=== PATIENT | female | born 1970 | race American Indian/Alaskan Native ===

== ENCOUNTER 2017-11-13 00:24 | Emergency (ER) | payer MEDICAID, MEDICARE ==
[2017-11-13 00:36] VITALS: BP 128/77
[2017-11-13] MEDS ORDERED: TYLENOL ONE (00:41)
[2017-11-13] MEDS ORDERED: TYLENOL PO ONE (00:44)
--- NOTE | 2017-11-13 01:31 | Emergency Department Report ---
ED Lower Extremity HPI - General Chief Complaint: Back Pain/Injury Stated Complaint: L FLANK PAIN Time Seen by Provider: 11/13/17 01:17 Source: patient, EMS Mode of arrival: Wheelchair Limitations: No Limitations - History of Present Illness Initial Comments: This is a 47 y.o. female presents with low back pain radiating to left leg for 1 day. She reports taking a nap around 1430 yesterday and when she woke up she could not move her left leg. She can only drag it. The pain 10/10 on pain scale and if feel numb. Denies injury or fall. Denies tingling, swelling, or redness. She have a history of varicose veins and chronic low back pain. -: Sudden (woke up to low back pain radiating to LLE yesterday) Time: 16:30 Injury: Leg: Left (pain shotting from low back) Type of Injury: unknown Place: home Severity: severe Severity scale (0 -10): 10 Improves With: nothing Context: walking Associated Symptoms: unable to bear weight. denies: snap/pop sensation, swelling, numbness, tingling, able to partially bear weight, ambulatory - Related Data Previous Rx's Medication Instructions Recorded Last Taken Type Compress.stocking,Knee,Reg,Lrg 1 each MC DAILY #1 each 11/13/17 Unknown Rx [Relief Knee Open Toe] Cyclobenzaprine HCl [Flexeril 5 MG 5 mg PO TID PRN #20 tab 11/13/17 Unknown Rx TAB] Diclofenac Sodium 50 mg PO TID PRN #30 tablet. 11/13/17 Unknown Rx Allergies Allergy/AdvReac Type Severity Reaction Status Date / Time No Known Allergies Allergy Verified 11/13/17 00:52 ED Review of Systems ROS: Stated complaint: L FLANK PAIN Other details as noted in HPI Constitutional: denies: chills, fever Respiratory: denies: cough, shortness of breath, wheezing Cardiovascular: denies: chest pain, palpitations Gastrointestinal: denies: abdominal pain, nausea, diarrhea Musculoskeletal: back pain (low back pain), arthralgia (LLE). denies: joint swelling Skin: denies: rash, lesions Neurological: denies: headache, weakness, paresthesias ED Past Medical Hx - Past Medical History Hx Arthritis: Yes Additional medical history: back pain and sciatica - Surgical History Additional Surgical History: left knee pain - Social History Smoking Status: Current Every Day Smoker Substance Use Type: None - Medications Home Medications: Home Medications Medication Instructions Recorded Confirmed Last Taken Type Compress.stocking,Knee,Reg,Lrg 1 each MC DAILY #1 each 11/13/17 Unknown Rx [Relief Knee Open Toe] Cyclobenzaprine HCl [Flexeril 5 MG 5 mg PO TID PRN #20 tab 11/13/17 Unknown Rx TAB] Diclofenac Sodium 50 mg PO TID PRN #30 tablet. 11/13/17 Unknown Rx ED Physical Exam - General Limitations: No Limitations General appearance: alert, in no apparent distress - Respiratory Respiratory exam: Present: normal lung sounds bilaterally. Absent: respiratory distress - Cardiovascular Cardiovascular Exam: Present: regular rate, normal rhythm. Absent: systolic murmur, diastolic murmur, rubs, gallop - GI/Abdominal GI/Abdominal exam: Present: soft, normal bowel sounds - Expanded Lower Extremity Exam Left Hip exam: Present: normal inspection, full ROM Upper Leg exam: Present: normal inspection, full ROM Knee exam: Present: normal inspection, full ROM Lower Leg exam: Present: normal inspection, full ROM Ankle exam: Present: normal inspection, full ROM Foot/Toe exam: Present: normal inspection, full ROM Neuro vascular tendon exam: Present: no vascular compromise Gait: Positive: observed and limited by pain, unable to bear weight (to LLE) - Back Exam Back exam: Present: muscle spasm, vertebral tenderness. Absent: CVA tenderness (R), CVA tenderness (L), rash noted - Neurological Exam Neurological exam: Present: alert, oriented X3, abnormal gait (unable to bear weight to LLE, draging LLE) - Skin Skin exam: Present: warm, dry, intact, normal color. Absent: rash ED Course Vital Signs 11/13/17 11/13/17 00:30 00:45 Temperature 98 F Pulse Rate 79 Respiratory 20 18 Rate Blood Pressure 128/77 O2 Sat by Pulse 100 Oximetry ED Lower Extremity MDM - Radiology Data Radiology results: report reviewed L-spine IMPRESSION: 1. No fracture or malalignment. 2. Mild spondylotic and degenerative changes. Left hip No fracture, dislocation, or significant degenerative changes. - Medical Decision Making This is a 47 y.o. female presents with low back pain radiating to LLE. Distress noted. Patient is unable to bear weight to LLE. Patient was examined by me. L- spine and left hip xray's obtained. Findings of mild spondylotic and degenerative changes. Physical findings susceptible of low back pain with sciatica to left. Given tylenol 650 mg po once, norco 10/325 mg po once. Patient informed of results. Plan discussed with patient to discharge home and treat outpatient. She agrees with ER plan. Request prescription for compression stocking for varicose veins. Patient discharged home in stable condition. Start ibuprofen and cyclobenzaprine. Follow up with PCP. Critical care attestation.: If time is entered above; I have spent that time in minutes in the direct care of this critically ill patient, excluding procedure time. ED Disposition Clinical Impression: Varicose vein of leg, Lumbar pain with radiation down left leg Low back pain with sciatica Qualifiers: Chronicity: acute Back pain laterality: bilateral Sciatica laterality: sciatica of left side Qualified Code(s): M54.42 - Lumbago with sciatica, left side Disposition: TO HOME OR SELFCARE Is pt being admited?: No Does the pt Need Aspirin: No Condition: Stable Instructions: Sciatica (ED), Varicose Veins (ED), Lumbar Radiculopathy (ED) Additional Instructions: Rest Use ice or heat on affected area for 20 minutes and off for 2 hours. Take pain medication as needed for pain. Don't drive or operate heavy machinery while taking muscle relaxers because they may cause drowsiness. Follow up with Primary Care Provider. Follow up with vascular surgery for varicose veins and Orthopedic for back pain. Prescriptions: Compress.stocking,Knee,Reg,Lrg [Relief Knee Open Toe] 1 each MC DAILY #1 each Cyclobenzaprine HCl [Flexeril 5 MG TAB] 5 mg PO TID PRN #20 tab PRN Reason: Muscle Spasm Diclofenac Sodium 50 mg PO TID PRN #30 tablet. PRN Reason: Pain Referrals: ALIX COKER MD [Staff Physician] - 3-5 Days ELLE XIE MD [Staff Physician] - 3-5 Days [facility] [Outside] - 3-5 Days [facility] [Outside] - 3-5 Days Forms: Work/School Release Form(ED) Time of Disposition: 05:12 Print Language: LITHUANIAN
--- NOTE | 2017-11-13 03:58 | XRay Report ---
FINAL REPORT EXAM: XR SPINE LUMBOSACRAL 2-3V HISTORY: Lower back pain with sciatica. TECHNIQUE: Frontal, lateral, and lateral coned-down lumbosacral radiographs of the lumbar spine were obtained. No prior studies are available for comparison. FINDINGS: The vertebral bodies demonstrate normal height and morphology. There is no fracture or spondylolisthesis. The intervertebral disc heights are maintained. There are mild spondylotic changes throughout the spine, with mild anterior and lateral marginal spurring. There is facet hypertrophy in the lower lumbar spine. Mild abdominal aortic calcifications are noted. There are multiple surgical clips in the right upper quadrant, in keeping with prior cholecystectomy. In this patient with reported sciatica, MRI examination should be considered for more definitive evaluation. IMPRESSION: 1. No fracture or malalignment. 2. Mild spondylotic and degenerative changes.
--- NOTE | 2017-11-13 04:06 | XRay Report ---
FINAL REPORT EXAM: XR HIP 2-3V LT HISTORY: Left hip pain. TECHNIQUE: A single frontal radiograph the pelvis and additional view of the left hip were obtained. No prior studies are available for comparison. FINDINGS: There is no fracture or dislocation. There is no significant joint space narrowing. Mild spondylotic changes are seen in the visualized lower lumbar spine. No other discrete osseous abnormality is seen. There are several subcentimeter curvilinear calcifications medial to the lesser trochanters on both sides,, may represent vascular calcifications or sequela of remote injury. IMPRESSION: No fracture, dislocation, or significant degenerative changes.
[2017-11-13] MEDS ORDERED: NORCO 10/325 PO ONE (04:25)
[2017-11-13] MEDS ORDERED: NORCO 10/325 ONE (06:37)
== END 2017-11-13 06:39 | disposition home or self-care (01) ==
LOC: ED 00:24
DX: M54.42 Lumbago with sciatica, left side (principal); I86.8 Varicose veins of other specified sites; M19.90 Unspecified osteoarthritis, unspecified site; F17.200 Nicotine dependence, unspecified, uncomplicated
CPT/HCPCS: 72100; 99284

== ENCOUNTER 2020-12-23 17:00 | Emergency (ER) | payer MEDICAID ==
[2020-12-23 17:18] VITALS: BP 159/82
--- NOTE | 2020-12-23 17:27 | Event Note ---
ED Screening Note Date of service: 12/23/20 Time: 17:27 ED Screening Note: Laceration to right lower leg via broken porcelain glass Unsure of last tetanus vaccine This initial assessment/diagnostic orders/clinical plan/treatment(s) is/are subject to change based on patients health status, clinical progression and re- assessment by fellow clinical providers in the ED. Further treatment and workup at subsequent clinical providers discretion. Patient/guardian urged not to elope from the ED as their condition may be serious if not clinically assessed and managed. Initial orders include: X-ray Boostrix
--- NOTE | 2020-12-23 17:56 | XRay Report ---
Right tibia and fibula 4 views INDICATION: Laceration FINDINGS: No radiopaque foreign body is definitely seen. Soft tissue laceration seen in the medial as pect of the lower leg soft tissues. No acute bone findings are identified. Signer Name: Jean Paul Valdez MD Signed: 12/23/2020 5:52 PM Workstation Name: [id number]
[2020-12-23] MEDS ORDERED: traMADol 50 MG TAB PO ONE (18:07)
[2020-12-23] MEDS ORDERED: IBUPROFEN 800 MG TAB PO ONE (18:24)
[2020-12-23] MEDS ORDERED: LIDOCAINE (2%) 20 MG/1 ML VIAL 20 ML MDV INFILTRATI ONE (18:49)
--- NOTE | 2020-12-23 18:52 | Emergency Department Report ---
- General Chief Complaint: Wound/Laceration Stated Complaint: ANKLE LAC Time Seen by Provider: 12/23/20 17:26 Source: patient Mode of arrival: Wheelchair Limitations: No Limitations - History of Present Illness Initial Comments: Patient is a 50-year-old female presents emergency room complaints of a laceration to her right lower leg that occurred just prior to arrival. Patient states that she was standing on a porcelain toilet and it broke into pieces and caused a laceration to her right lower leg. She states that initially there was bleeding but it resolved with placement of gauze. She denies any other injury. She is able to ambulate. She denies any numbness or weakness. She is unsure of her last tetanus immunization. Past medical history of asthma, arthritis, and COPD. Allergy to [place], penicillin, shellfish. - Related Data Previous Rx's Medication Instructions Recorded Last Taken Type Compress.stocking,Knee,Reg,Lrg 1 each MC DAILY #1 each 11/13/17 Unknown Rx [Relief Knee Open Toe] Cyclobenzaprine HCl [Flexeril 5 MG 5 mg PO TID PRN #20 tab 11/13/17 Unknown Rx TAB] Diclofenac Sodium 50 mg PO TID PRN #30 tablet. 11/13/17 Unknown Rx traMADoL [Ultram 50 MG tab] 50 mg PO Q6HR PRN #20 tablet 11/13/17 Unknown Rx Ibuprofen [Motrin 800 MG tab] 800 mg PO Q8HR PRN #27 tablet 02/07/19 Unknown Rx Sulfamethoxazole/Trimethoprim 1 each PO BID #14 tablet 02/07/19 Unknown Rx [Bactrim DS TAB] Naproxen [EC-Naprosyn] 500 mg PO BID PRN #14 tablet. 12/23/20 Unknown Rx Sulfamethoxazole/Trimethoprim 1 each PO BID 7 Days #14 tablet 12/23/20 Unknown Rx [Bactrim DS TAB] Allergies Allergy/AdvReac Type Severity Reaction Status Date / Time acetaminophen [From Vicodin] Allergy Itching Verified 02/07/19 21:26 hydrocodone [From Vicodin] Allergy Itching Verified 02/07/19 21:26 Penicillins Allergy Itching Verified 02/07/19 21:26 shellfish derived Allergy Swelling Verified 02/07/19 21:26 ED Review of Systems ROS: Stated complaint: ANKLE LAC Other details as noted in HPI Comment: All other systems reviewed and negative ED Past Medical Hx - Past Medical History Previous Medical History?: Yes Hx Arthritis: Yes Additional medical history: back pain and sciatica. PVD - Surgical History Past Surgical History?: Yes Additional Surgical History: left knee pain. x1 - Social History Smoking Status: Current Every Day Smoker Substance Use Type: None - Medications Home Medications: Home Medications Medication Instructions Recorded Confirmed Last Taken Type Compress.stocking,Knee,Reg,Lrg 1 each MC DAILY #1 each 11/13/17 Unknown Rx [Relief Knee Open Toe] Cyclobenzaprine HCl [Flexeril 5 MG 5 mg PO TID PRN #20 tab 11/13/17 Unknown Rx TAB] Diclofenac Sodium 50 mg PO TID PRN #30 tablet. 11/13/17 Unknown Rx traMADoL [Ultram 50 MG tab] 50 mg PO Q6HR PRN #20 tablet 11/13/17 Unknown Rx Ibuprofen [Motrin 800 MG tab] 800 mg PO Q8HR PRN #27 tablet 02/07/19 Unknown Rx Sulfamethoxazole/Trimethoprim 1 each PO BID #14 tablet 02/07/19 Unknown Rx [Bactrim DS TAB] Naproxen [EC-Naprosyn] 500 mg PO BID PRN #14 tablet. 12/23/20 Unknown Rx Sulfamethoxazole/Trimethoprim 1 each PO BID 7 Days #14 tablet 12/23/20 Unknown Rx [Bactrim DS TAB] ED Physical Exam - General Limitations: No Limitations General appearance: alert, in no apparent distress - Head Head exam: Present: atraumatic, normocephalic - Eye Eye exam: Present: normal appearance - ENT ENT exam: Absent: mucous membranes moist - Respiratory Respiratory exam: Absent: respiratory distress, accessory muscle use - Neurological Exam Neurological exam: Present: alert, oriented X3 - Psychiatric Psychiatric exam: Present: normal affect, normal mood - Skin Skin exam: Present: warm, dry, other (4 cm laceration present to the medial surface of the right ankle just posterior to the malleolus region, no active bleeding, no muscle/tendon involvement, FROM of the RLE, no foreign body, no deformity, neurovascularly intact) ED Course Vital Signs 12/23/20 12/23/20 17:17 18:26 Temperature 98 F Pulse Rate 89 Respiratory 24 18 Rate Blood Pressure 159/82 [Right] O2 Sat by Pulse 96 Oximetry - Laceration /Wound Repair Right Medial Ankle Wound Location: lower extremity (right medial ankle) Wound Length (cm): 4 Wound's Depth, Shape: superficial, linear Wound Explored: clean Irrigated w/ Saline (ccs): 100 Betadine Prep?: Yes Volume Anesthetic (ccs): 10 (2% lidocaine without epi) Wound Debrided: moderate Wound Repaired With: sutures Suture Size/Type: 3:0, proline Number of Sutures: 8 Layer Closure?: No Sterile Dressing Applied?: Yes Progress: Wound irrigated with saline and thoroughly scrubbed with chlorhexidine, 10 cc of 2% lidocaine without epinephrine used anesthetic, no foreign body, no muscle or tendon involvement, chlorhexidine prep, sterile gloves worn, sterile drapes applied, 3-0 Prolene used for skin closure, 8 sutures placed, patient tolerated well, no complications, bleeding controlled, sterile dressing applied ED Medical Decision Making - Radiology Data Radiology results: report reviewed Ordering Physician: MYRON MIGUEL Date of Service: 12/23/20 Procedure(s): XR tibia fibula 2V RT Accession Number(s): [id number] cc: MYRON MIGUEL Fluoro Time In Minutes: Right tibia and fibula 4 views INDICATION: Laceration FINDINGS: No radiopaque foreign body is definitely seen. Soft tissue laceration seen in the medial aspect of the lower leg soft tissues. No acute bone findings are identified. Signer Name: Jean Paul Valdez MD Signed: 12/23/2020 5:52 PM Workstation Name: [id number] Transcribed By: CW Dictated By: ARTURO VALDEZ MD Electronically Authenticated By: ARTURO VALDEZ MD Signed Date/Time: 12/23/201751 DD/ 50 TD/TT: - Medical Decision Making Patient is a 50-year-old female presents emergency room complaints of a laceration to her right lower leg that occurred just prior to arrival. Patient states that she was standing on a porcelain toilet and it broke into pieces and caused a laceration to her right lower leg. She states that initially there was bleeding but it resolved with placement of gauze. She denies any other injury. She is able to ambulate. She denies any numbness or weakness. She is unsure of her last tetanus immunization. Past medical history of asthma, arthritis, and COPD. Allergy to [place], penicillin, shellfish. Vitals are stable. On exam: 4 cm laceration present to the medial surface of the right ankle just posterior to the malleolus region, no active bleeding, no muscle/tendon involvement, FROM of the RLE, no foreign body, no deformity, neurovascularly intact. XR right tib fib: FINDINGS: No radiopaque foreign body is definitely seen. Soft tissue laceration seen in the medial aspect of the lower leg soft tissues. No acute bone findings are identified. Laceration repaired per procedure note without any complications. Patient given prescription for naproxen and Bactrim. Patient given Tdap immunization. Advised patient Please keep area clean, dry, covered. Wash with antibacterial soap and water and pat dry. No hot tub, no pool, no soaking in water. Showering is fine. Sutures will be need to be removed in 10 to 14 days. Please take medication as prescribed. Follow-up with primary care doctor. Return to emergency room for any worsening symptoms or any signs of infection. Critical care attestation.: If time is entered above; I have spent that time in minutes in the direct care of this critically ill patient, excluding procedure time. ED Disposition Clinical Impression: Laceration of right lower leg Qualifiers: Encounter type: initial encounter Qualified Code(s): S81.811A - Laceration without foreign body, right lower leg, initial encounter Disposition: DC- TO HOME OR SELFCARE Is pt being admited?: No Does the pt Need Aspirin: No Condition: Stable Instructions: Laceration Care, Adult Additional Instructions: Please keep area clean, dry, covered. Wash with antibacterial soap and water and pat dry. No hot tub, no pool, no soaking in water. Showering is fine. Sutures will be need to be removed in 10 to 14 days. Please take medication as prescribed. Follow-up with primary care doctor. Return to emergency room for any worsening symptoms or any signs of infection. Prescriptions: Sulfamethoxazole/Trimethoprim [Bactrim DS TAB] 1 each PO BID 7 Days #14 tablet Naproxen [EC-Naprosyn] 500 mg PO BID PRN #14 tablet.dr [place] Reason: pain Referrals: JO SIFUENTES MD [Staff Physician] - 2-3 Days [facility] [Provider Group] - 2-3 Days Forms: Accompanied Note, Work/School Release Form(ED) Time of Disposition: 19:31 Print Language: ROMANIAN
== END 2020-12-23 19:45 | disposition home or self-care (01) ==
LOC: ED 17:00
DX: S81.811A Laceration without foreign body, right lower leg, initial encounter (principal); M19.91 Primary osteoarthritis, unspecified site; F17.200 Nicotine dependence, unspecified, uncomplicated; Z98.890 Other specified postprocedural states; Z79.1 Long term (current) use of non-steroidal anti-inflammatories (NSAID); Z79.899 Other long term (current) drug therapy; Z88.0 Allergy status to penicillin; Z88.8 Allergy status to other drugs, medicaments and biological substances; Z91.013 Allergy to seafood; X58.XXXA Exposure to other specified factors, initial encounter; Y93.89 Activity, other specified; Y92.89 Other specified places as the place of occurrence of the external cause; Y99.8 Other external cause status

== ENCOUNTER 2022-04-06 00:40 | Emergency (ER) | payer MEDICAID ==
--- NOTE | 2022-04-06 08:36 | Emergency Department Report ---
ED Fall HPI - General Chief Complaint: Fall Stated Complaint: FALL/ARM PAIN Source: patient, EMS Mode of arrival: Ambulatory - History of Present Illness Initial Comments: 51-year-old female presents to the ED complaining right shoulder right knee and right ankle pain. Patient states that she was standing on her porch leaning against a porch post when it broke. Patient states she landed on the ground. Patient states that she is able to bear weight but with pain. She states pain to the right side is a 10 out of 10. Patient is able to move extremity without any difficulty. She has obvious swelling in the right knee and the right ankle. No distracting injury noted. No obvious deformity noted. Patient is alert and oriented x3. She denies any numbness or tingling. MD Complaint: fall -: This morning - Related Data Previous Rx's Medication Instructions Recorded Last Taken Type Compress.stocking,Knee,Reg,Lrg 1 each MC DAILY #1 each 11/13/17 Unknown Rx [Relief Knee Open Toe] Cyclobenzaprine HCl [Flexeril 5 MG 5 mg PO TID PRN #20 tab 11/13/17 Unknown Rx TAB] Diclofenac Sodium 50 mg PO TID PRN #30 tablet. 11/13/17 Unknown Rx traMADoL [Ultram 50 MG tab] 50 mg PO Q6HR PRN #20 tablet 11/13/17 Unknown Rx Ibuprofen [Motrin 800 MG tab] 800 mg PO Q8HR PRN #27 tablet 02/07/19 Unknown Rx Sulfamethoxazole/Trimethoprim 1 each PO BID #14 tablet 02/07/19 Unknown Rx [Bactrim DS TAB] Naproxen [EC-Naprosyn] 500 mg PO BID PRN #14 tablet. 12/23/20 Unknown Rx Sulfamethoxazole/Trimethoprim 1 each PO BID 7 Days #14 tablet 12/23/20 Unknown Rx [Bactrim DS TAB] Acetaminophen/Codeine [Tylenol 1 tab PO Q6H PRN 3 Days #12 tab 04/06/22 Unknown Rx /Codeine # 3 tab] Naproxen [Naprosyn] 500 mg PO BID 15 Days #30 tablet 04/06/22 Unknown Rx Allergies Allergy/AdvReac Type Severity Reaction Status Date / Time acetaminophen [From Vicodin] Allergy Itching Verified 02/07/19 21:26 hydrocodone [From Vicodin] Allergy Itching Verified 02/07/19 21:26 Penicillins Allergy Itching Verified 02/07/19 21:26 shellfish derived Allergy Swelling Verified 02/07/19 21:26 ED Review of Systems ROS: Stated complaint: FALL/ARM PAIN Other details as noted in HPI Constitutional: denies: chills, fever Eyes: denies: eye pain, eye discharge, vision change ENT: denies: ear pain, throat pain Respiratory: denies: cough, shortness of breath, wheezing Cardiovascular: denies: chest pain, palpitations Endocrine: no symptoms reported Gastrointestinal: denies: abdominal pain, nausea, diarrhea Genitourinary: denies: urgency, dysuria, discharge Musculoskeletal: joint swelling. denies: back pain, arthralgia Skin: denies: rash, lesions Neurological: denies: headache, weakness, paresthesias Psychiatric: denies: anxiety, depression Hematological/Lymphatic: denies: easy bleeding, easy bruising ED Past Medical Hx - Past Medical History Hx Arthritis: Yes Additional medical history: back pain and sciatica. PVD - Surgical History Additional Surgical History: left knee pain. x1 - Social History Smoking Status: Current Every Day Smoker Substance Use Type: None - Medications Home Medications: Home Medications Medication Instructions Recorded Confirmed Last Taken Type Compress.stocking,Knee,Reg,Lrg 1 each MC DAILY #1 each 11/13/17 Unknown Rx [Relief Knee Open Toe] Cyclobenzaprine HCl [Flexeril 5 MG 5 mg PO TID PRN #20 tab 11/13/17 Unknown Rx TAB] Diclofenac Sodium 50 mg PO TID PRN #30 tablet. 11/13/17 Unknown Rx traMADoL [Ultram 50 MG tab] 50 mg PO Q6HR PRN #20 tablet 11/13/17 Unknown Rx Ibuprofen [Motrin 800 MG tab] 800 mg PO Q8HR PRN #27 tablet 02/07/19 Unknown Rx Sulfamethoxazole/Trimethoprim 1 each PO BID #14 tablet 02/07/19 Unknown Rx [Bactrim DS TAB] Naproxen [EC-Naprosyn] 500 mg PO BID PRN #14 tablet. 12/23/20 Unknown Rx Sulfamethoxazole/Trimethoprim 1 each PO BID 7 Days #14 tablet 12/23/20 Unknown Rx [Bactrim DS TAB] Acetaminophen/Codeine [Tylenol 1 tab PO Q6H PRN 3 Days #12 tab 04/06/22 Unknown Rx /Codeine # 3 tab] Naproxen [Naprosyn] 500 mg PO BID 15 Days #30 tablet 04/06/22 Unknown Rx ED Physical Exam - General Limitations: No Limitations General appearance: alert, in no apparent distress - Head Head exam: Present: atraumatic, normocephalic - Eye Eye exam: Present: normal appearance - ENT ENT exam: Present: mucous membranes moist - Neck Neck exam: Present: normal inspection - Respiratory Respiratory exam: Present: normal lung sounds bilaterally. Absent: respiratory distress - Cardiovascular Cardiovascular Exam: Present: regular rate, normal rhythm. Absent: systolic murmur, diastolic murmur, rubs, gallop - GI/Abdominal GI/Abdominal exam: Present: soft, normal bowel sounds - Extremities Exam Extremities exam: Present: normal inspection, tenderness, joint swelling - Back Exam Back exam: Present: normal inspection - Neurological Exam Neurological exam: Present: alert, oriented X3 - Psychiatric Psychiatric exam: Present: normal affect, normal mood - Skin Skin exam: Present: warm, dry, intact, normal color. Absent: rash ED Course Vital Signs 04/06/22 08:59 Temperature 98.1 F Pulse Rate 69 Respiratory 18 Rate Blood Pressure 144/72 [Left] O2 Sat by Pulse 97 Oximetry ED Medical Decision Making - Medical Decision Making 51-year-old female presents to the ED complaining right shoulder right knee and right ankle pain. Patient states that she was standing on her porch leaning against a porch post when it broke. Patient states she landed on the ground. Patient states that she is able to bear weight but with pain. She states pain to the right side is a 10 out of 10. Patient is able to move extremity without any difficulty. She has obvious swelling in the right knee and the right ankle. No distracting injury noted. No obvious deformity noted. Patient is alert and oriented x3. She denies any numbness or tingling. Verbal report from Dr. Torres radiology: Right shoulder negative. Right knee mild joint effusion. Mild osteoarthritis right ankle: Negative Kurt wrap applied to the right ankle Rechecked the patient is resting quietly quietly and comfortable and feeling better. I discussed the results of diagnostic study, my clinical impression and the plan for further treatment with the patient. Patient agrees with plan and discharge at this present time. All question addressed. I have given the patient instruction regarding a diagnosis ,expectation ,follow- up and return precaution. I explained to the patient that emergent condition may arise and to return to the ED for new worsen and any new persisting condition. I have explained the importance of following up with the primary care physician or referral physician listed below has instructed. The patient verbalized understanding of discharge instruction. Critical care attestation.: If time is entered above; I have spent that time in minutes in the direct care of this critically ill patient, excluding procedure time. ED Disposition Clinical Impression: Fall Qualifiers: Encounter type: initial encounter Qualified Code(s): W19.XXXA - Unspecified fall, initial encounter Right shoulder pain Qualifiers: Chronicity: acute Qualified Code(s): M25.511 - Pain in right shoulder Right knee pain Qualifiers: Chronicity: acute Qualified Code(s): M25.561 - Pain in right knee Right ankle pain Qualifiers: Chronicity: acute Qualified Code(s): M25.571 - Pain in right ankle and joints of right foot Disposition: 01 HOME / SELF CARE / HOMELESS Is pt being admited?: No Does the pt Need Aspirin: No Condition: Stable Instructions: Acute Knee Pain, Adult, Shoulder Pain, How to Use Cold Therapy, [id number], Shoulder Pain, [id number], Musculoskeletal Pain, Joint Pain, Acute Knee Pain, Adult, [id number], Reactive Arthritis Additional Instructions: Take medication as prescribed Return to the ED for any worsening symptom Prescriptions: Naproxen [Naprosyn] 500 mg PO BID 15 Days #30 tablet Acetaminophen/Codeine [Tylenol /Codeine # 3 tab] 1 tab PO Q6H PRN 3 Days #12 tab PRN Reason: Pain, Mild (1-3) Referrals: JO SIFUENTES MD [Primary Care Provider] - 3-5 Days [facility] [Provider Group] - 3-5 Days Forms: Work/School Release Form(ED) Time of Disposition: 10:16
[2022-04-06 08:59] VITALS: BP 144/72
[2022-04-06] MEDS ORDERED: KETOROLAC 30 MG/1 ML INJ IM ONE (10:16)
--- NOTE | 2022-04-06 17:58 | XRay Report ---
Right shoulder one view INDICATION: Pain FINDINGS: There is glenohumeral degenerative change. Mild AC degenerative change. No acute fracture d islocation. Signer Name: Jean Paul Valdez MD Signed: 04/06/2022 5:52 PM Workstation Name: [id number]
--- NOTE | 2022-04-06 18:02 | XRay Report ---
XR ankle 2V RT, XR knee 1-2V RT INDICATION / CLINICAL INFORMATION: ankle pain. COMPARISON: None available. FINDINGS: No acute fracture. Knee joint effusion. Normal alignment. Joint spaces are preserved. No destructiv e osseous lesion or suspicious periosteal reaction. Impression: 1.No acute fracture. Knee joint effusion. Signer Name: Nolberto Huynh MD Signed: 04/06/2022 5:56 PM Workstation Name: [id number]
== END 2022-04-06 10:45 | disposition home or self-care (01) ==
LOC: ED 00:40
DX: M25.511 Pain in right shoulder (principal); M25.561 Pain in right knee; M25.571 Pain in right ankle and joints of right foot; F17.200 Nicotine dependence, unspecified, uncomplicated; Z88.0 Allergy status to penicillin; Z91.013 Allergy to seafood; W19.XXXA Unspecified fall, initial encounter; Y93.89 Activity, other specified; Y92.89 Other specified places as the place of occurrence of the external cause; Y99.8 Other external cause status
CPT/HCPCS: 73020; 73560; 73600; 96372; 99283; J1885